=== PATIENT | male | born 1995 | race American Indian/Alaskan Native ===

== ENCOUNTER 2018-09-14 12:21 | Emergency (ER) | payer OTHER ==
--- NOTE | 2018-09-14 12:59 | Emergency Department Report ---
Blank Doc - Documentation Documentation: This is a 23-year-old male that presents with right side lip pain and blisters. patient denies any trauma. This initial assessment/diagnostic orders/clinical plan/treatment(s) is/are subject to change based on patient's health status, clinical progression and re- assessment by fellow clinical providers in the ED. Further treatment and workup at subsequent clinical providers discretion. Patient/guardians urged not to elope from the ED as their condition may be serious if not clinically assessed and managed. Initial orders include: 1- Patient sent to [facility] for further evaluation and treatment
--- NOTE | 2018-09-14 15:00 | Emergency Department Report ---
ED Rash HPI - HPI Chief Complaint: Skin/Abscess/Foreign Body Stated Complaint: RT SIDE LIP Time Seen by Provider: 09/14/18 12:58 Duration: 3 Days Location: Head (upper lip) Suspected Cause: Unknown Rash Symptoms: Yes Blistering, No Itching, No Facial Swelling, No Tongue/Oral Swelling, No Breathing Difficulties, No Choking Sensation, No Wheezing/Dyspnea, No Peeling, No Fever, No Lightheaded, No Malaise, No Myalgias Other History: This is a 23-year-old -[place] male who presents with bumps to right side of the upper lid for 3 days. Patient states he returned home from [facility] and noticed painful lesion to right side of upper lip. Admits to oral intercourse with a known partner. Denies penile discharge, drainage, or swelling. ED Review of Systems ROS: Stated complaint: RT SIDE LIP Other details as noted in HPI Constitutional: denies: chills, fever Respiratory: denies: cough, shortness of breath, wheezing Cardiovascular: denies: chest pain, palpitations Gastrointestinal: denies: abdominal pain, nausea, diarrhea Skin: lesions (right side of upper lip). denies: rash Neurological: denies: headache, weakness, paresthesias Psychiatric: denies: anxiety, depression ED Past Medical Hx - Past Medical History Previous Medical History?: No - Surgical History Past Surgical History?: No - Social History Smoking Status: Never Smoker Substance Use Type: None - Medications Home Medications: Home Medications Medication Instructions Recorded Confirmed Last Taken Type Valacyclovir HCl [Valtrex] 1,000 mg PO BID #20 tablet 09/14/18 Unknown Rx Rash Exam - Exam General: Vital signs noted. No distress. Alert and acting appropriately. HEENT: No Periorbital Edema, No Conjuctival Injection, No Chemosis, No Perioral Edema, No Tongue Edema, No Uvular Edema, No Compromised Airway, No Drooling Lungs: Yes Good Air Exchange (Normal Breath Sounds), No Wheezes, No Ronchi, No Stridor, No Cough, No Labored Respirations, No Retractions, No Use of Accessory Muscles, No Other Abnormal Lung Sounds Heart: Yes Regular, No Murmur Skin: Yes Other (half centimeter ruptured ulcer on right side of upper lip, tender), No Urticarial Rash, No Maculopapular Rash, No Morbilliform rash, No Bulla(e), No Excoriations, No Weeping, No Tenderness, No Erythema, No Edema, No Encrustations ED Course Vital Signs 09/14/18 12:59 Temperature 98.5 F Pulse Rate 95 H Respiratory 16 Rate Blood Pressure 143/96 [Left] O2 Sat by Pulse 96 Oximetry ED Medical Decision Making - Medical Decision Making This is a 23-year-old male who presents with ulcer to right side of upper lip. Patient was examined by me. Vitals are stable and in no acute distress. No labs ordered. Findings suggestive of herpes simplex 1. Start valacyclovir 1000 mg by mouth twice a day 10 days with one refill. Instructed to follow up with [facility] or outside medical clinic for further STD screening. Discharged home in stable condition. Discussed prevention options. F/U with PCP or Health Department. Critical care attestation.: If time is entered above; I have spent that time in minutes in the direct care of this critically ill patient, excluding procedure time. ED Disposition Clinical Impression: Lip ulcer, Oral herpes simplex infection Disposition: TO HOME OR SELFCARE Is pt being admited?: No Does the pt Need Aspirin: No Condition: Stable Instructions: Oral Herpes Simplex Virus Infections (ED) Additional Instructions: Complete full course of antiviral medication as prescribed. Follow-up with health department or clinic from referrals below for full STD screening. Prescriptions: Valacyclovir HCl [Valtrex] 1,000 mg PO BID #20 tablet Referrals: [facility] MD [Primary Care Provider] - 3-5 Days [facility] [Outside] - 3-5 Days [facility] [Outside] - 3-5 Days [facility] [Outside] - 3-5 Days Forms: Work/School Release Form(ED) Time of Disposition: 15:04
== END 2018-09-14 15:12 | disposition home or self-care (01) ==
LOC: ED 12:21
CPT/HCPCS: 99282